=== PATIENT | male | born 1940 | race Caucasian/White ===

== ENCOUNTER 2016-08-14 06:31 | Day surgery (SDC) | payer OTHER ==
[2016-08-14] MEDS ORDERED: MIDAZOLAM 2 MG/2 ML VIAL IVP ONE (06:34)
[2016-08-14] MEDS ORDERED: fentaNYL 100 MCG/2 ML INJ IVP ONE (06:34)
[2016-08-14] MEDS ORDERED: NS 500 ML IV ONE (06:34)
[2016-08-14] MEDS ORDERED: BENZOCAINE UNIT DOSE SPRAY HURRICAINE MM ONE (06:34)
[2016-08-14] MEDS ORDERED: PROPOFOL 200 MG/20 ML VIAL IVP ONE (06:34)
--- NOTE | 2016-08-14 06:53 | CPEKG ---
Heart Rate: 132 RR Interval: 455 P-R Interval: 139 QRSD Interval: 84 QT Interval: 336 QTC Interval: 498 P [place]: 0 QRS [place]: 41 T Wave [place]: -1 EKG Severity - ABNORMAL ECG - EKG Impression: SUPRAVENTRICULAR TACHYCARDIA EKG Impression: BORDERLINE PROLONGED QT INTERVAL Electronically Signed By: Ruddy Ordoñez 14-Aug-2016 07:55:20
[2016-08-14] MEDS ORDERED: ATROPINE SULFATE 1 MG/10 ML SYR ONE (07:11)
[2016-08-14 07:18] LABS: INR 1.75 (0.83-1.16); PROTIME(PATIENT) 20.5 SEC (12.0-15.0)
[2016-08-14 07:19] LABS: APTT 56.5 SEC (23.0-38.0)
[2016-08-14 07:44] LABS: ANION GAP 10 mEq/L (8-16); CALCIUM 8.7 mg/dL (8.5-10.4); CARBON DIOXIDE 25 mEq/l (22-31); CHLORIDE 108 mEq/L (97-110); CREATININE 1.2 mg/dL (0.7-1.3); GLOMERULAR FILTRATION RATE 59; GLUCOSE 93 mg/dL (70-100); MAGNESIUM 1.9 mg/dL (1.6-2.3); POTASSIUM 4.1 mEq/L (3.5-5.2); SODIUM 143 mEq/L (134-144)
[2016-08-14] MEDS ORDERED: PROPOFOL 200 MG/20 ML VIAL ONE (07:59)
--- NOTE | 2016-08-14 11:34 | ECHO ---
[id number] + + [address] : : [facility] [address] : : [phone] + + Transesophageal Echocardiographic Report + ------+ :Name: IZABEL BROWN TStudy Date: 08/14/2016 07:43 AM : : Hospital Admission Number: [id number] Locatio n: CVC: :: 1940 Gender: Male : :Age: 76 yrs Race: WH : :Reason For Study: Atrial Fibrillation : + ------+ Doppler Measurements \T\ Calculations Ao V2 max: 179.7 cm/sec Ao max P.9 mmHg Left Ventricle Left ventricular systolic function is low normal. Ejection Fraction = 50%%. Right Ventricle The right ventricular systolic function is normal. Atria The interatrial septum is intact with no evidence for an atrial septal defect. Spontaneous contrast in left atrial appendage. A mass is seen in the left atrial appendage that is suggestive of a left atrial thrombus. Mitral Valve The mitral valve is normal in structure and function. There is no evidence of mitral valve prolapse. There is trace to mild mitral regurgitation. Tricuspid Valve The tricuspid valve is normal in structure and function. There is trace tricuspid regurgitation. Aortic Valve The aortic valve is trileaflet. There is mild aortic valve calcification. There is no aortic stenosis. There is no aortic insufficiency. Pulmonic Valve The pulmonic valve is normal in structure and function. Vessels Severe atherosclerotic plaque(s) in the descending aorta. Conclusion A 2D transesophageal echocardiogram with color flow Doppler was performed. Cardioversion canceled. Spontaneous contrast in left atrial appendage. A mass is seen in the left atrial appendage that is suggestive of a left atrial thrombus. There is trace to mild mitral regurgitation. Severe atherosclerotic plaque(s) in the descending aorta. Left ventricular systolic function is low normal. Ejection Fraction = 50%%. There is trace tricuspid regurgitation. Final Reading Physician: Fortino Artis electronically signed on 08/14/2016 11:34 AM Ordering Physician: Fortino Artis Performed By: Fortino Artis
== END 2016-08-14 09:40 | disposition home or self-care (01) ==
LOC: FCATH 06:31
PROVIDERS: ATTEND Internal Medicine Cardiovascular Disease
PROC: 4A02XCZ Measurement of Cardiac Rate, External Approach (ICD-10-PCS; principal; 2016-08-14)
DX: I48.0 Paroxysmal atrial fibrillation (principal); I25.10 Atherosclerotic heart disease of native coronary artery without angina pectoris; I71.4 Abdominal aortic aneurysm, without rupture; I73.9 Peripheral vascular disease, unspecified; I10 Essential (primary) hypertension; E78.00 Pure hypercholesterolemia, unspecified; I35.0 Nonrheumatic aortic (valve) stenosis; R35.1 Nocturia
CPT/HCPCS: J0461; J2704

== ENCOUNTER 2017-01-14 10:55 | Observation (INO) | payer OTHER ==
[2017-01-14] MEDS ORDERED: BACITRACIN IRRIGATION/NS 50,000 UNITS/1,000 ML BTL IRR ONE (10:59)
[2017-01-14] MEDS ORDERED: diphenhydrAMINE 25 MG CAP PO ONE (10:59)
[2017-01-14] MEDS ORDERED: DIAZEPAM 5 MG TAB PO ONE (10:59)
[2017-01-14] MEDS ORDERED: NS 1,000 ML IV ONE (10:59)
[2017-01-14] MEDS ORDERED: ceFAZolin 2 GM/SWFI 2 GM/20 ML SYR IVP ONE (10:59)
--- NOTE | 2017-01-14 11:20 | CPEKG ---
Heart Rate: 60 RR Interval: 1000 P-R Interval: 180 QRSD Interval: 92 QT Interval: 416 QTC Interval: 416 P [place]: 50 QRS [place]: 23 T Wave [place]: 6 EKG Severity - NORMAL ECG - EKG Impression: SINUS RHYTHM Electronically Signed By: Marcus Hernandez 14-Jan-2017 12:29:45
--- NOTE | 2017-01-14 11:20 | CPEKG ---
Heart Rate: 60 RR Interval: 1000 P-R Interval: 180 QRSD Interval: 92 QT Interval: 416 QTC Interval: 416 P [place]: 50 QRS [place]: 23 T Wave [place]: 6 EKG Severity - NORMAL ECG - EKG Impression: SINUS RHYTHM Electronically Signed By: Marcus Hernandez 14-Jan-2017 12:29:45
[2017-01-14 11:31] LABS: PLATELET COUNT 140 10^3/uL (150-400)
--- NOTE | 2017-01-14 11:41 | PDHPUP ---
History & Physical Update H&P update statement: This history and physical update is based on an assessment of the patient which was completed after admission or registration (within 24 hours), but prior to the surgery/procedure. H&P update: H&P reviewed & patient examined, no change in patient's condition since H&P completed
--- NOTE | 2017-01-14 11:41 | PDPROPOC ---
Sedation Plan of Care Sedation Plan of Care: vital signs stable, mental status noted, patient educated of risks, benefits, alternatives, patient can tolerate sedation ASA Classification: ASA 2 Planned drugs: fentanyl, midazolam Mallampati Score: Class 1 Mallampati Reference Image: Patient passed 3-3-2 rule?: Yes
[2017-01-14 11:51] LABS: INR 1.08 (0.83-1.16); PROTIME(PATIENT) 13.9 SEC (12.0-15.0)
--- NOTE | 2017-01-14 12:11 | PDGENHP ---
History & Physical Chief Complaint: 4.7 s pause post AFIb conversion History of Present Illness: AFIb with RVR Relevant Physical Exam: S1S2 RRR. CTA. A/O x 3 Cardiorespiratory Assessment: Tachy-galilea syndrome, AF with RVR and pauses post AFIB conversion up to 4.7 s. For permanent pacemaker placement
[2017-01-14] MEDS ORDERED: LIDOCAINE 1% 300 MG/30 ML SDV ONE (12:16)
[2017-01-14] MEDS ORDERED: BUPIVACAINE 0.5% 30 ML SDV ONE (12:17)
[2017-01-14] MEDS ORDERED: fentaNYL 100 MCG/2 ML INJ ONE (12:17)
[2017-01-14] MEDS ORDERED: MIDAZOLAM 2 MG/2 ML VIAL ONE (12:17)
[2017-01-14] MEDS ORDERED: IOPAMIDOL (ISOVUE-300) 100 ML BTL ONE (12:17)
[2017-01-14] MEDS ORDERED: HYDROCODONE/APAP 5/325 TAB PO PRN (14:26)
--- NOTE | 2017-01-14 14:43 | EPPROC ---
Electrophysiology Procedure Note: PROCEDURE PERFORMED: 1. Implantation of an A/V Pacemaker 2. Subclavian vein angiography 3. Fluoroscopy INDICATION: Atrial fibrillation with rapid ventricular response and post conversion pause of up to 4.7 seconds (Tachy-Pierre syndrome) PROCEDURE NOTE: Patient presented to the cardiac catheterization laboratory in a fasting, post absorptive state . EP RN administered sedation. The left infraclavicular area was prepped and draped in the usual sterile fashion. Lidocaine plus bupivacaine was used for local anesthesia. Left subclavian venography was performed by injection of iodinated contrast into the left antecubital vein. This was done to assure patency of the vein and also to assess for any anatomical aberrations. Using a combination of blunt and sharp dissection and electrocautery, the dissection was carried down to the prepectoral fascia. A pocket was made in this anatomical plane. All bleeding was controlled with electrocautery. The pocket was packed with gauze soaked in antibiotic solution. Fluoroscopy was utilized during the entire procedure for venous access and placement of the leads. Using a direct stick technique the left extrathoracic axillary vein was accessed with 2 sticks using the modified Seldinger technique. Placement of the guidewires into the venous system was confirmed by low-pressure blood return and also by visualizing the guidewires advancing into the inferior vena cava. A purse string suture was applied around the guidewires. Two #7 Maltese sheaths were advanced under fluoroscopic guidance over the guidewire. An active fixation ventricular lead was advanced into the right ventricular apex and screwed in place. An active fixation atrial lead was advanced into the right atrial appendage and screwed in place. The peel away sheaths were removed. Pacing thresholds, sensing parameters and lead impedances were measured. There was no diaphragmatic stimulation at maximum output. The leads were sutured to the prepectoral fascia with 3 nonabsorbable sutures each. The pocket was again inspected for any bleeding. The leads were attached to the pacemaker securely. The pacemaker was inserted into the pocket and secured in place with a nonabsorbable suture. Fluoroscopy was performed in SANCHEZ and [place] planes to verify right-sided placement of the leads. Also fluoroscopy of the pacemaker pocket was performed. The pacemaker pocket was closed in 3 layers with absorbable monocryl sutures and shanna. Appropriate dressing was applied. The patient left the cardiac catheterization laboratory in stable condition. Serial Numbers: 1. [facility]: [facility]272 SN [id number] 2. Atrial Lead: SJM Tendril STS 2088TC 52 cm SN [id number] 3. Ventricular Lead: SJM Tendril STS 2088TC 58 cm SN [id number] Stimulation Thresholds & Impedance Measurements: 1. Atrial Lead P 4.8 mV 493 ohm 0.5 V 0.5 ms 2. Ventricular Lead R 6.2 mV855 ohm 0.3 V 0.5 ms Pierre Pacing Parameters 1. Pacing mode: DDDR 2. Lower rate: 60ppm 3. Upper tracking rate: 130 ppm 4. Upper sensor rate: 130 ppm Patient Problems: Problems Problem Status Onset Sick sinus syndrome Acute
--- NOTE | 2017-01-14 14:43 | EPPROC ---
Electrophysiology Procedure Note: PROCEDURE PERFORMED: 1. Implantation of an A/V Pacemaker 2. Subclavian vein angiography 3. Fluoroscopy INDICATION: Atrial fibrillation with rapid ventricular response and post conversion pause of up to 4.7 seconds (Tachy-Pierre syndrome) PROCEDURE NOTE: Patient presented to the cardiac catheterization laboratory in a fasting, post absorptive state . EP RN administered sedation. The left infraclavicular area was prepped and draped in the usual sterile fashion. Lidocaine plus bupivacaine was used for local anesthesia. Left subclavian venography was performed by injection of iodinated contrast into the left antecubital vein. This was done to assure patency of the vein and also to assess for any anatomical aberrations. Using a combination of blunt and sharp dissection and electrocautery, the dissection was carried down to the prepectoral fascia. A pocket was made in this anatomical plane. All bleeding was controlled with electrocautery. The pocket was packed with gauze soaked in antibiotic solution. Fluoroscopy was utilized during the entire procedure for venous access and placement of the leads. Using a direct stick technique the left extrathoracic axillary vein was accessed with 2 sticks using the modified Seldinger technique. Placement of the guidewires into the venous system was confirmed by low-pressure blood return and also by visualizing the guidewires advancing into the inferior vena cava. A purse string suture was applied around the guidewires. Two #7 [place] sheaths were advanced under fluoroscopic guidance over the guidewire. An active fixation ventricular lead was advanced into the right ventricular apex and screwed in place. An active fixation atrial lead was advanced into the right atrial appendage and screwed in place. The peel away sheaths were removed. Pacing thresholds, sensing parameters and lead impedances were measured. There was no diaphragmatic stimulation at maximum output. The leads were sutured to the prepectoral fascia with 3 nonabsorbable sutures each. The pocket was again inspected for any bleeding. The leads were attached to the pacemaker securely. The pacemaker was inserted into the pocket and secured in place with a nonabsorbable suture. Fluoroscopy was performed in SANCHEZ and [place] planes to verify right-sided placement of the leads. Also fluoroscopy of the pacemaker pocket was performed. The pacemaker pocket was closed in 3 layers with absorbable monocryl sutures and shanna. Appropriate dressing was applied. The patient left the cardiac catheterization laboratory in stable condition. Serial Numbers: 1. Device: [facility] 2272 SN [id number] 2. Atrial Lead: SJM Tendril STS 2088TC 52 cm SN [id number] 3. Ventricular Lead: SJM Tendril STS 2088TC 58 cm SN [id number] Stimulation Thresholds & Impedance Measurements: 1. Atrial Lead P 4.8 mV 493 ohm 0.5 V 0.5 ms 2. Ventricular Lead R 6.2 mV855 ohm 0.3 V 0.5 ms Pierre Pacing Parameters 1. Pacing mode: DDDR 2. Lower rate: 60ppm 3. Upper tracking rate: 130 ppm 4. Upper sensor rate: 130 ppm Patient Problems: Problems Problem Status Onset Sick sinus syndrome Acute
--- NOTE | 2017-01-14 14:43 | EPPROC ---
Electrophysiology Procedure Note: PROCEDURE PERFORMED: 1. Implantation of an A/V Pacemaker 2. Subclavian vein angiography 3. Fluoroscopy INDICATION: Atrial fibrillation with rapid ventricular response and post conversion pause of up to 4.7 seconds (Tachy-Pierre syndrome) PROCEDURE NOTE: Patient presented to the cardiac catheterization laboratory in a fasting, post absorptive state . EP RN administered sedation. The left infraclavicular area was prepped and draped in the usual sterile fashion. Lidocaine plus bupivacaine was used for local anesthesia. Left subclavian venography was performed by injection of iodinated contrast into the left antecubital vein. This was done to assure patency of the vein and also to assess for any anatomical aberrations. Using a combination of blunt and sharp dissection and electrocautery, the dissection was carried down to the prepectoral fascia. A pocket was made in this anatomical plane. All bleeding was controlled with electrocautery. The pocket was packed with gauze soaked in antibiotic solution. Fluoroscopy was utilized during the entire procedure for venous access and placement of the leads. Using a direct stick technique the left extrathoracic axillary vein was accessed with 2 sticks using the modified Seldinger technique. Placement of the guidewires into the venous system was confirmed by low-pressure blood return and also by visualizing the guidewires advancing into the inferior vena cava. A purse string suture was applied around the guidewires. Two #7 Maltese sheaths were advanced under fluoroscopic guidance over the guidewire. An active fixation ventricular lead was advanced into the right ventricular apex and screwed in place. An active fixation atrial lead was advanced into the right atrial appendage and screwed in place. The peel away sheaths were removed. Pacing thresholds, sensing parameters and lead impedances were measured. There was no diaphragmatic stimulation at maximum output. The leads were sutured to the prepectoral fascia with 3 nonabsorbable sutures each. The pocket was again inspected for any bleeding. The leads were attached to the pacemaker securely. The pacemaker was inserted into the pocket and secured in place with a nonabsorbable suture. Fluoroscopy was performed in [place] and [place] planes to verify right-sided placement of the leads. Also fluoroscopy of the pacemaker pocket was performed. The pacemaker pocket was closed in 3 layers with absorbable monocryl sutures and shanna. Appropriate dressing was applied. The patient left the cardiac catheterization laboratory in stable condition. Serial Numbers: 1. Device: [facility] 2272 SN [id number] 2. Atrial Lead: SJM Tendril STS 2088TC 52 cm SN [id number] 3. Ventricular Lead: SJM Tendril STS 2088TC 58 cm SN [id number] Stimulation Thresholds & Impedance Measurements: 1. Atrial Lead P 4.8 mV 493 ohm 0.5 V 0.5 ms 2. Ventricular Lead R 6.2 mV855 ohm 0.3 V 0.5 ms Pierre Pacing Parameters 1. Pacing mode: DDDR 2. Lower rate: 60ppm 3. Upper tracking rate: 130 ppm 4. Upper sensor rate: 130 ppm Patient Problems: Problems Problem Status Onset Sick sinus syndrome Acute
--- NOTE | 2017-01-14 14:45 | CPEKG ---
Heart Rate: 60 RR Interval: 1000 P-R Interval: 200 QRSD Interval: 88 QT Interval: 424 QTC Interval: 424 QRS [place]: 25 T Wave [place]: -41 EKG Severity - ABNORMAL ECG - EKG Impression: ATRIAL-PACED RHYTHM EKG Impression: BORDERLINE T ABNORMALITIES, INFERIOR LEADS Electronically Signed By: Félix Herrera 15-Jan-2017 10:43:52
--- NOTE | 2017-01-14 14:45 | CPEKG ---
Heart Rate: 60 RR Interval: 1000 P-R Interval: 200 QRSD Interval: 88 QT Interval: 424 QTC Interval: 424 QRS [place]: 25 T Wave [place]: -41 EKG Severity - ABNORMAL ECG - EKG Impression: ATRIAL-PACED RHYTHM EKG Impression: BORDERLINE T ABNORMALITIES, INFERIOR LEADS Electronically Signed By: Félix Herrera 15-Jan-2017 10:43:52
[2017-01-14] MEDS ORDERED: METOPROLOL TARTRATE 50 MG TAB PO SCH (21:00)
[2017-01-14] MEDS ORDERED: LISINOPRIL 5 MG TAB PO SCH (21:00)
[2017-01-14] MEDS ORDERED: PANTOPRAZOLE SODIUM 40 MG TAB PO SCH (21:00)
[2017-01-14] MEDS ORDERED: ATORVASTATIN CALCIUM 40 MG TAB PO SCH (21:00)
[2017-01-14] MEDS ORDERED: NON-FORMULARY NEW DRUG (Omeprazole [Prilosec 20 Mg] 20 MG) PO SCH (21:00)
[2017-01-15 04:49] LABS: PLATELET COUNT 127 10^3/uL (150-400)
[2017-01-15 08:31] VITALS: BP 143/82; PULSE 60; RESP 15; TEMP 97.8; O2SAT 93
[2017-01-15] MEDS ORDERED: METOPROLOL SUCCINATE XR 25 MG TAB PO SCH (09:00)
--- NOTE | 2017-01-15 09:12 | CPEKG ---
Heart Rate: 60 RR Interval: 1000 P-R Interval: 196 QRSD Interval: 90 QT Interval: 408 QTC Interval: 408 QRS [place]: 10 T Wave [place]: 6 EKG Severity - ABNORMAL ECG - EKG Impression: ATRIAL-PACED RHYTHM Electronically Signed By: Félix Herrera 15-Jan-2017 10:43:29
--- NOTE | 2017-01-15 09:12 | CPEKG ---
Heart Rate: 60 RR Interval: 1000 P-R Interval: 196 QRSD Interval: 90 QT Interval: 408 QTC Interval: 408 QRS [place]: 10 T Wave [place]: 6 EKG Severity - ABNORMAL ECG - EKG Impression: ATRIAL-PACED RHYTHM Electronically Signed By: Félix Herrera 15-Jan-2017 10:43:29
--- NOTE | 2017-01-15 15:30 | GDS ---
[f rep st] DISCHARGE SUMMARY DISCHARGE DIAGNOSIS: 1. Paroxysmal atrial fibrillation. 2. Tachy-galilea syndrome. 3. Post dual-chamber pacemaker implant. BRIEF HISTORY: This is a 76-year-old man who is a patient of Dr. Artis. He has paroxysmal atrial fib rillation with RVR and has had up to 4.7 second pause post conversion to sinus rhythm. HOSPITAL COURSE: Dr. Hernandez implanted a dual-chamber pacemaker. This is a [employer] [facility] MRI compatible system. Mode is DDDR, base rate of 60 beats per minute, max track rate is 130 beats p er minute. Device interrogation on the morning of discharge demonstrated normal function with P waves at greater than 5 mV, atrial capture threshold 0.5 V at 0.5 milliseconds. Lead impedance is 490 ohm s, R-waves are 11.7 mV. Right ventricular capture threshold is 0.3 V at 0.5 milliseconds. RV lead im pedance is 850 ohms. The patient has done well overnight without any bleeding or pain at the pacemak er site. IMAGING: Chest x-ray demonstrates no pneumothorax. A 12-lead EKG demonstrates atrial pacing and ed tricular sensing. LAB WORK: WBC is 4.37, hemoglobin 13.9, hematocrit 40.4, platelets 127. Sodium 139, potassium 4.0, chloride 106, bicarb 25, BUN 16, creatinine 1.1, glucose 88. INR is 1.08, PTT is 13.9. PHYSICAL EXAM: VITAL SIGNS: Blood pressure is 143/82, pulse is 60, respirations 15, temperature is 36.6. GENERAL: He is alert and oriented, sitting up in bed, in no acute distress. CARDIAC: Regula r rate and rhythm with a 2/6 harsh systolic ejection murmur loudest at the right sternal border. SHANE GS: Clear to auscultation. ABDOMEN: Soft, and nontender. Pacemaker site has dry gauze with clear Op-Site over with minimal swelling. EXTREMITIES: Warm. No lower extremity edema or discoloration. DISCHARGE MEDICATIONS: Patient will continue current home medications. He will take Eliquis when he gets home this morning, and continue usual dosing. DISCHARGE ACTIVITIES: Restrictions were reviewed with the patient and his including no lifting left arm above the shoulder height or pulling arm behind him. No lifting over 10 pounds for 4 weeks. He is not to get the dressing wet until wound check next week. FOLLOWUP: He has a pacemaker check and wound check scheduled at [facility] on 01/22 at 2:30. He will continue routine device followup at Dr. Artis's office. He has a followup with Dr. Hernandez on [facility] er 6th at 3:30. /[id number]/MODL
--- NOTE | 2017-01-15 15:30 | GDS ---
[f rep st] DISCHARGE SUMMARY DISCHARGE DIAGNOSIS: 1. Paroxysmal atrial fibrillation. 2. Tachy-galilea syndrome. 3. Post dual-chamber pacemaker implant. BRIEF HISTORY: This is a 76-year-old man who is a patient of Dr. Artis. He has paroxysmal atrial fib rillation with RVR and has had up to 4.7 second pause post conversion to sinus rhythm. HOSPITAL COURSE: Dr. Hernandez implanted a dual-chamber pacemaker. [facility] is a [employer] [facility] system. Mode is DDDR, base rate of 60 beats per minute, max track rate is 130 beats p er minute. Device interrogation on the morning of discharge demonstrated normal function with P waves at greater than 5 mV, atrial capture threshold 0.5 V at 0.5 milliseconds. Lead impedance is 490 ohm s, R-waves are 11.7 mV. Right ventricular capture threshold is 0.3 V at 0.5 milliseconds. RV lead im pedance is 850 ohms. The patient has done well overnight without any bleeding or pain at the pacemak er site. IMAGING: Chest x-ray demonstrates no pneumothorax. A 12-lead EKG demonstrates atrial pacing and ed tricular sensing. LAB WORK: WBC is 4.37, hemoglobin 13.9, hematocrit 40.4, platelets 127. Sodium 139, potassium 4.0, chloride 106, bicarb 25, BUN 16, creatinine 1.1, glucose 88. INR is 1.08, PTT is 13.9. PHYSICAL EXAM: VITAL SIGNS: Blood pressure is 143/82, pulse is 60, respirations 15, temperature is 36.6. GENERAL: He is alert and oriented, sitting up in bed, in no acute distress. CARDIAC: Regula r rate and rhythm with a 2/6 harsh systolic ejection murmur loudest at the right sternal border. SHANE GS: Clear to auscultation. ABDOMEN: Soft, and nontender. Pacemaker site has dry gauze with clear Op-Site over with minimal swelling. EXTREMITIES: Warm. No lower extremity edema or discoloration. DISCHARGE MEDICATIONS: Patient will continue current home medications. He will take Eliquis when he gets home this morning, and continue usual dosing. DISCHARGE ACTIVITIES: Restrictions were reviewed with the patient and his including no lifting left arm above the shoulder height or pulling arm behind him. No lifting over 10 pounds for 4 weeks. He is not to get the dressing wet until wound check next week. FOLLOWUP: He has a pacemaker check and wound check scheduled at [facility] on 01/22 at 2:30. He will continue routine device followup at Dr. Artis's office. He has a followup with Dr. Hernandez on [facility] er 6th at 3:30. /[id number]/MODL
--- NOTE | 2017-01-15 17:21 | ASDISCHSUM ---
Discharge Information Plan Status:Home with No Needs Medically Cleared to Leave:01/14/2017 Discharge Date:01/15/2017 10:29 AM CM D/C Disposition:Home, Routine, Self-Care ADT D/C Disposition:Home, Routine, Self-Care Projected Discharge Date:01/15/2017 10:29 AM Transportation at D/C:Friend Discharge Delay Reason: Follow-Up Date:01/15/2017 10:29 AM Discharge Slot: Final Diagnosis: Placement Information Patient Contact Information Contact Name:RAZ Relationship: Address:[address] City:[place] Alternate Phone: State/Zip Code:[place] [address] Email: Financial Information Financial Class: Primary Plan Desc:MEDICARE OUTPATIENT Primary Plan Number:[id number] Secondary Plan Desc:[facility] Secondary Plan Number:[id number] Assessment Information Intervention Information
--- NOTE | 2017-01-15 17:21 | ASDISCHSUM ---
Discharge Information Plan Status:Home with No Needs Medically Cleared to Leave:01/14/2017 Discharge Date:01/15/2017 10:29 AM CM D/C Disposition:Home, Routine, Self-Care ADT D/C Disposition:Home, Routine, Self-Care Projected Discharge Date:01/15/2017 10:29 AM Transportation at D/C:Friend Discharge Delay Reason: Follow-Up Date:01/15/2017 10:29 AM Discharge Slot: Final Diagnosis: Placement Information Patient Contact Information Contact Name:RAZ Relationship: Address:[address] City:[place] Alternate Phone: State/Zip Code:[place] [address] Email: Financial Information Financial Class: Primary Plan Desc:MEDICARE OUTPATIENT Primary Plan Number:[id number] Secondary Plan Desc:[facility] Secondary Plan Number:[id number] Assessment Information Intervention Information
--- NOTE | 2017-01-15 17:21 | ASDISCHSUM ---
Discharge Information Plan Status:Home with No Needs Medically Cleared to Leave:01/14/2017 Discharge Date:01/15/2017 10:29 AM CM D/C Disposition:Home, Routine, Self-Care ADT D/C Disposition:Home, Routine, Self-Care Projected Discharge Date:01/15/2017 10:29 AM Transportation at D/C:Friend Discharge Delay Reason: Follow-Up Date:01/15/2017 10:29 AM Discharge Slot: Final Diagnosis: Placement Information Patient Contact Information Contact Name:RAZ Relationship: Address:[address] City:[place] Alternate Phone: State/Zip Code:[place] [address] Email: Financial Information Financial Class: Primary Plan Desc:MEDICARE OUTPATIENT Primary Plan Number:[id number] Secondary Plan Desc:[facility] Secondary Plan Number:[id number] Assessment Information Intervention Information
== END 2017-01-15 10:29 | disposition home or self-care (01) ==
LOC: FCATH 10:55 → F2W 14:26
PROVIDERS: ADMIT Internal Medicine Cardiovascular Disease; ATTEND Internal Medicine Cardiovascular Disease
PROC: 02H63JZ Insertion of Pacemaker Lead into Right Atrium, Percutaneous Approach (ICD-10-PCS; principal; 2017-01-14)
PROC: 0JH606Z Insertion of Pacemaker, Dual Chamber into Chest Subcutaneous Tissue and Fascia, Open Approach (ICD-10-PCS; principal; 2017-01-14)
PROC: 02HK3JZ Insertion of Pacemaker Lead into Right Ventricle, Percutaneous Approach (ICD-10-PCS; principal; 2017-01-14)
DX: I49.5 Sick sinus syndrome (principal); I48.0 Paroxysmal atrial fibrillation; I10 Essential (primary) hypertension; I73.9 Peripheral vascular disease, unspecified; I35.0 Nonrheumatic aortic (valve) stenosis; I71.4 Abdominal aortic aneurysm, without rupture; I25.10 Atherosclerotic heart disease of native coronary artery without angina pectoris; K21.9 Gastro-esophageal reflux disease without esophagitis; Z79.01 Long term (current) use of anticoagulants; Z87.891 Personal history of nicotine dependence
CPT/HCPCS: 33208; 71010; 71020; 93005; C1785; C1898; J0690; J2250; J3010; Q9967

== ENCOUNTER 2017-02-18 00:35 | Inpatient (IN) | payer OTHER ==
[2017-02-18] MEDS ORDERED: ONDANSETRON DISINTEGRATING 4 MG TAB PO PRN (10:57)
[2017-02-18] MEDS ORDERED: ONDANSETRON 4 MG/2 ML VIAL IVP PRN (10:57)
[2017-02-18] MEDS ORDERED: ACETAMINOPHEN 325 MG TAB PO PRN (10:57)
--- NOTE | 2017-02-18 11:42 | CPEKG ---
Heart Rate: 70 RR Interval: 857 P-R Interval: 180 QRSD Interval: 88 QT Interval: 404 QTC Interval: 436 QRS [place]: 29 T Wave [place]: 39 EKG Severity - ABNORMAL ECG - EKG Impression: ATRIAL-PACED RHYTHM Electronically Signed By: Yesenia Gann 18-Feb-2017 12:18:06
[2017-02-18 12:11] LABS: % IMMATURE GRANULYOCYTES 0.2 % (0.0-1.1); ABSOLUTE IMMATURE GRANULOCYTES 0.01 10^3/uL (0.00-0.10); ADD DIFF? NO; ADD MORPH? NO; ADD SCAN? NO; ATYPICAL LYMPHOCYTE FLAG 0 (0-99); FRAGMENT RBC FLAG 0 (0-99); HEMATOCRIT 45.6 % (40.0-51.0); HEMOGLOBIN 15.3 g/dL (13.7-17.5); LEFT SHIFT FLG 0 (0-99); LIPEMIA HEMOLYSIS FLAG 80 (0-99); MEAN CELL HEMOGLOBIN 31.4 pg (27.9-34.1); MEAN CELL HEMOGLOBIN CONCENTR. 33.6 g/dL (32.4-36.7); MEAN CELL VOLUME 93.4 fL (81.5-99.8); MEAN PLATELET VOLUME 10.2 fL (8.7-11.7); PLATELET CLUMPS FLAG 10 (0-99); PLATELET COUNT 127 10^3/uL (150-400); RED BLOOD CELL COUNT 4.88 10^6/uL (4.40-6.38); RED CELL DISTRIBUTION WIDTH 13.9 % (11.5-15.2)
[2017-02-18 12:22] LABS: INR 1.19 (0.83-1.16); PROTIME(PATIENT) 15.3 SEC (12.0-15.0)
[2017-02-18 12:23] LABS: ANION GAP 12 mEq/L (8-16); APTT 31.3 SEC (23.0-38.0); CALCIUM 9.2 mg/dL (8.5-10.4); CARBON DIOXIDE 29 mEq/l (22-31); CHLORIDE 105 mEq/L (97-110); CREATININE 1.1 mg/dL (0.7-1.3); GLOMERULAR FILTRATION RATE > 60; GLUCOSE 93 mg/dL (70-100); POTASSIUM 4.4 mEq/L (3.5-5.2); SODIUM 146 mEq/L (134-144)
[2017-02-18] MEDS ORDERED: NAPROXEN SODIUM 220 MG TAB PO PRN (12:28)
--- NOTE | 2017-02-18 13:00 | PDCARPN ---
Cardiology Progress Note Chief Complaint: Patient reports no complaints Assessment/Plan: Assessment: Please see Dr. Hernandez is office note dated 01/10/2017 to be used as official history and physical. Mr. Darling is a 76-year-old male with known history of paroxysmal atrial fibrillation, sinus pauses up to 4.2 sec, hypertension, status post ppm implantation. He has been noted in the past after cardioversion of having 4.2 sec pauses, and bradycardia post ablation. He was evaluated by Dr. Hernandez on January 10, per request of his primary medical imaging director, Dr. Artis, which he was felt for best controlling his atrial fibrillation, would be antiarrhythmic therapy after pacemaker implantation. He is status post ppm dual chamber placed by Dr. Hernandez on 01/14/2017. He has been admitted today to be monitored by initial loading doses of sotalol. His electrocardiogram done today shows a pace with intrinsic ventricular response, normal axis, no significant ST or T-wave abnormalities suggesting of ischemia. QTC was measured at 436 milliseconds. Initial laboratory studies showing no anemia, mildly elevated sodium at 146, potassium 4.4, magnesium 2.0, rest of electrolyte and renal function WNL. Plan: 1. Paroxysmal atrial fibrillation: Patient currently a paced with intrinsic ventricular response. Will discontinue his metoprolol, and start him on sotalol at 120 mg p. o. twice daily D. We will plan for his 1st 4 doses to get a 2 hr post dosing 12 lead electrocardiogram. We will continue on current anticoagulation therapy of Eliquis. 2. Sinus pauses: Patient has been noted to have pauses up to 4.2 sec on Zoll monitor, has recently underwent ppm implantation. No noted on electrocardiogram , continue monitor. 3. Hypertension: Will resume patient's home lisinopril, with the discontinuation of metoprolol and placed him on sotalol, will monitor his blood pressure closely, and adjust medication therapy as needed. 4. DVT prophylaxis: Patient is ambulatory , have ordered him to have knee- high Mannie hose. He is also on full anticoagulation with Eliquis. 5. Code status: Patient is a full code. Due to potential arrhythmias with sotalol loading, patient will be monitored for 1st 4 doses, which will require to be in hospital for greater than 2 midnights. 02/18/17 12:59 Subjective: patient denies of any chest pressure, pain, breath, orthopnea, PND, edema, lightheadedness, near-syncope, or syncopal events. Denies of any symptoms suggestive of TIA or CVA. Denies of any bleeding issues, currently on Eliquis. Reviewed/Discussed With: other (Dr Hernandez) Objective: Vital Signs (8 Hrs) Temp Pulse Resp BP Pulse Ox 02/18/17 10:00 36.5 C 67 16 138/78 H 94 Intake/Output (24 Hrs) 02/17/17 02/18/17 02/19/17 05:59 05:59 05:59 Other: Weight 94.4 kg Result Diagrams: 02/18/17 11:55 02/18/17 11:55 - Physical Exam Constitutional: WDWN, healthy appearing, no apparent distress Ears, Nose, Mouth, Throat: moist mucous membranes Cardiovascular: regular rate and rhythm, systolic murmur ( 1-2/6 systolic murmur noted along left sternal master), pulses symmetric bilat, No jugular vein distention (rder.), No carotid bruit Peripheral Pulses: 1+: dorsalis-pedis (R), dorsalis-pedis (L), 2+: carotid (R), carotid (L) Respiratory: other ( Lungs are clear to auscultation, no rhonchi, rales, or wheezing noted.) Gastrointestinal: normoactive bowel sounds Skin: warm, no edema Neurologic: AAOx3 Psychiatric: cooperative, interactive, following commands ICD10 Worksheet Patient Problems: Problems Problem Status Onset Sick sinus syndrome Acute
[2017-02-18] MEDS: ATORVASTATIN CALCIUM 40 MG TAB PO SCH (20:15)
[2017-02-18] MEDS: LISINOPRIL 5 MG TAB PO SCH (20:16)
[2017-02-18] MEDS: ASPIRIN EC 81 MG TAB PO SCH (20:16)
[2017-02-18] MEDS: SOTALOL HCL 80 MG TAB PO SCH (20:17)
[2017-02-18] MEDS: APIXABAN 5 MG TAB PO SCH (20:17)
[2017-02-18] MEDS: PANTOPRAZOLE SODIUM 40 MG TAB PO SCH (20:17)
[2017-02-18] MEDS ORDERED: NON-FORMULARY NEW DRUG (Omeprazole [Prilosec 20 Mg] 20 MG) PO SCH (21:00)
--- NOTE | 2017-02-18 22:43 | CPEKG ---
Heart Rate: 60 RR Interval: 1000 P-R Interval: 196 QRSD Interval: 90 QT Interval: 428 QTC Interval: 428 QRS [place]: 18 T Wave [place]: 34 EKG Severity - ABNORMAL ECG - EKG Impression: ATRIAL-PACED RHYTHM Electronically Signed By: Yesenia Gann 19-Feb-2017 06:58:37
[2017-02-19 06:03] LABS: INR 1.11 (0.83-1.16); PROTIME(PATIENT) 14.5 SEC (12.0-15.0)
[2017-02-19 06:10] LABS: ANION GAP 11 mEq/L (8-16); CALCIUM 8.9 mg/dL (8.5-10.4); CARBON DIOXIDE 23 mEq/l (22-31); CHLORIDE 109 mEq/L (97-110); CREATININE 1.1 mg/dL (0.7-1.3); GLOMERULAR FILTRATION RATE > 60; GLUCOSE 90 mg/dL (70-100); MAGNESIUM 1.9 mg/dL (1.6-2.3); POTASSIUM 4.2 mEq/L (3.5-5.2); SODIUM 143 mEq/L (134-144)
[2017-02-19] MEDS: SOTALOL HCL 80 MG TAB PO SCH ×2 (09:04→21:09)
[2017-02-19] MEDS: APIXABAN 5 MG TAB PO SCH ×2 (09:04→21:09)
--- NOTE | 2017-02-19 09:47 | PDCARPN ---
Cardiology Progress Note Chief Complaint: Patient voices no complaints today. States he is feeling well. Assessment/Plan: Assessment: Mr. Darling is a 76-year-old male with known history of paroxysmal atrial fibrillation, sinus pauses up to 4.2 sec, hypertension, status post ppm implantation. He has been noted in the past after cardioversion of having 4.2 sec pauses, and bradycardia post ablation. He was evaluated by Dr. 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 Artis, which he was felt for best controlling his atrial fibrillation, would be antiarrhythmic therapy after pacemaker implantation. He is status post ppm dual chamber placed by Dr. Hernandez on 01/14/2017. Today, patient states that he feels well. Denies any chest pain, chest pressure , palpitations, shortness of breath, lightheadedness, or dizziness. Reviewed telemetry this morning, and patient is A paced with V intrinsic beat. No runs of arrhythmia noted. Post dose EKG showed QTc of 428 last night (pre- dose QTc was 436). Today labs revealed potassium 4.2 and magnesium was 1.9. Plan: 1. Paroxysmal atrial fibrillation: Patient currently a paced with intrinsic ventricular response. Continue current dose sotalol at 120 mg p. o. twice daily. Continue next 3 doses during this admission to get a 2 hr post dosing 12 lead electrocardiogram. We will continue on current anticoagulation therapy of Eliquis. 2. Sinus pauses: Patient has been noted to have pauses up to 4.2 sec on Zoll monitor, has recently underwent ppm implantation. No noted on electrocardiogram , continue monitor. 3. Hypertension: Blood pressure this morning 124/61. Continue current doses of lisinopril and sotalol, will monitor his blood pressure closely, and adjust medication therapy as needed. 4. DVT prophylaxis: Patient is ambulatory , have ordered him to have knee- high Mannie hose. He is also on full anticoagulation with Eliquis. 5. Code status: Patient is a full code. Due to potential arrhythmias with sotalol loading, patient will be monitored for 1st 4 doses, which will require to be in hospital for greater than 2 midnights. 02/19/17 09:41 Subjective: Patient denies any chest pain, pressure, palpitations, or lightheadedness. Reviewed/Discussed With: other (Dr Hernandez) Objective: Vital Signs (8 Hrs) Temp Pulse Resp BP Pulse Ox 02/19/17 08:00 36.6 C 60 19 124/61 H 92 02/19/17 04:25 36.6 C 68 16 138/84 H 92 Intake/Output (24 Hrs) 02/18/17 02/19/17 02/20/17 05:59 05:59 05:59 Intake Total 1500 Output Total 900 Balance 600 Intake: Oral (ml) 1500 Output: Urine (ml) 900 Toilet 900 Other: Weight 94.4 kg Intake Quantity Yes Sufficient Number of Stools Toilet 1 Result Diagrams: 02/18/17 11:55 02/19/17 04:34 - Physical Exam Constitutional: WDWN, healthy appearing, no apparent distress Ears, Nose, Mouth, Throat: moist mucous membranes Cardiovascular: regular rate and rhythm, systolic murmur, pulses symmetric bilat , No no rubs, No no gallops (3/6 r upper border), No jugular vein distention Peripheral Pulses: 1+: dorsalis-pedis (R), dorsalis-pedis (L) Respiratory: clear to auscultate bilat, no crackles, no wheezes, No reduced air movement Skin: warm, no edema Neurologic: AAOx3 Psychiatric: cooperative, interactive, following commands ICD10 Worksheet Patient Problems: Problems Problem Status Onset Sick sinus syndrome Acute
--- NOTE | 2017-02-19 10:01 | ASMTCMCOM ---
CM Note CM Note Notes: 02/19/2017 Case Management Note Reviewed chart. Pt admitted for Sotolol loading. Recent d/c from [facility] was independent. There are no new case management d/c needs identified d/t family support and activity levels prior to admission. There are no PT or OT evals ordered at this time. Case Management d/c poc: Home independent with family support and follow up as directed. Case Management available if needs change. Date Signed: 02/19/2017 10:01 AM Electronically Signed By:Sangeetha Bartholomew RN
[2017-02-19] MEDS ORDERED: FLU VACC QS 2017-18 (3YR+)/PF 0.5 ML SYR (FLUARIX QUAD) IM ONE (10:02)
[2017-02-19] MEDS ORDERED: PNEUMOC 13-VAL CONJ-DIP CRM/PF 0.5 ML SYR IM ONE (10:02)
--- NOTE | 2017-02-19 11:07 | CPEKG ---
Heart Rate: 60 RR Interval: 1000 P-R Interval: 192 QRSD Interval: 86 QT Interval: 444 QTC Interval: 444 QRS [place]: 22 T Wave [place]: 21 EKG Severity - ABNORMAL ECG - EKG Impression: ATRIAL-PACED RHYTHM Electronically Signed By: Marcus Hernandez 19-Feb-2017 11:30:17
[2017-02-19 16:32] VITALS: PULSE 60
[2017-02-19] MEDS: PANTOPRAZOLE SODIUM 40 MG TAB PO SCH (21:09)
[2017-02-19] MEDS: ATORVASTATIN CALCIUM 40 MG TAB PO SCH (21:09)
[2017-02-19] MEDS: LISINOPRIL 5 MG TAB PO SCH (21:09)
[2017-02-19] MEDS: ASPIRIN EC 81 MG TAB PO SCH (21:09)
--- NOTE | 2017-02-19 23:11 | CPEKG ---
Heart Rate: 60 RR Interval: 1000 P-R Interval: 192 QRSD Interval: 90 QT Interval: 452 QTC Interval: 452 QRS [place]: 5 T Wave [place]: 11 EKG Severity - ABNORMAL ECG - EKG Impression: ATRIAL-PACED RHYTHM Electronically Signed By: Yesenia Gann 20-Feb-2017 08:28:05
[2017-02-20 05:45] LABS: ANION GAP 9 mEq/L (8-16); CARBON DIOXIDE 28 mEq/l (22-31); CHLORIDE 105 mEq/L (97-110); CREATININE 1.1 mg/dL (0.7-1.3); GLOMERULAR FILTRATION RATE > 60; GLUCOSE 85 mg/dL (70-100); MAGNESIUM 1.8 mg/dL (1.6-2.3); SODIUM 142 mEq/L (134-144)
[2017-02-20 06:00] LABS: CALCIUM 8.5 mg/dL (8.5-10.4)
[2017-02-20] MEDS ORDERED: MAGNESIUM SULF 1 GM/DEXTROSE 100 ML IV ONE (08:05)
[2017-02-20] MEDS: APIXABAN 5 MG TAB PO SCH (08:42)
[2017-02-20] MEDS: SOTALOL HCL 80 MG TAB PO SCH (08:43)
--- NOTE | 2017-02-20 11:07 | CPEKG ---
Heart Rate: 60 RR Interval: 1000 P-R Interval: 188 QRSD Interval: 90 QT Interval: 432 QTC Interval: 432 QRS [place]: 28 T Wave [place]: 37 EKG Severity - ABNORMAL ECG - EKG Impression: ATRIAL-PACED RHYTHM Electronically Signed By: Marcus Hernandez 20-Feb-2017 11:14:23
[2017-02-20 12:31] VITALS: BP 135/72; RESP 14; TEMP 97.5; O2SAT 93
--- NOTE | 2017-02-20 13:41 | GDS ---
[f rep st] DISCHARGE SUMMARY ADMISSION DIAGNOSES: 1. Paroxysmal atrial fibrillation. 2. Tachybrady syndrome. 3. Remote permanent pacemaker implantation. 4. Hypertension. DISCHARGE DIAGNOSES: 1. Paroxysmal atrial fibrillation. 2. Tachybrady syndrome. 3. Remote permanent pacemaker implantation. 4. Hypertension. 5. Status post antiarrhythmic of sotalol loading. PROCEDURES PERFORMED DURING HOSPITALIZATION: 1. Electrocardiogram. 2. Laboratory studies. BRIEF HISTORY: Please see history and physical, briefly the patient is a 76-year-old male with known history of paroxysmal atrial fibrillation. Unfortunately he has been noted to have tachybrady syndro me. He has recently underwent PPM implantation on January 14. He has been on metoprolol, but demarcus nues to have episodes of atrial fibrillation and was electively admitted to [facility] for sotalol loading. HOSPITAL COURSE: The patient was admitted to the PCU. There he has been on continuous cardiac monit oring. His metoprolol tartrate has been discontinued and he has been started on sotalol. He has been getting 2-hour post dosing electrocardiograms. He has maintained a paced intrinsic ventricular rhyth m. He has had no atrial fibrillation, A flutter or pauses or malignant arrhythmias throughout hospita lization. Denies any adverse reactions since starting sotalol. He has been up and walking the unit without any difficulties. His QTc post sotalol dosing 2 hours has been remaining within normal limit s. PHYSICAL EXAMINATION: GENERAL APPEARANCE: Medium built, well-groomed male. He is alert a nd oriented to person, place, time, and situation. Appears to be under no acute distress. CURRENT V ITAL SIGNS: Blood pressure of 130/67, heart rate of 60, respirations are 92% on room air. Temperatu re 36.4 degrees Celsius. HEENT: Head is normocephalic. Lips and tongue are pink and moist with no signs of cyanosis. Conjunctivae pink. NECK: Trachea is midline, +2 carotids bilateral. No ausculta carrol bruits. No jugular vein distention. RESPIRATORY: Lungs clear to auscultation, no rhonchi, rales or wheezes. No accessory muscle use. No intercostal muscle retraction noted. CARDIAC: Regular ra te, regular rhythm, S1, S2. A 2-3/6 systolic murmur noted loudest in the left upper chest. ABDOMEN: Soft, nontender, bowel sounds x4 quadrants. No organomegaly. No palpable masses. SKIN: [place], warm, dry, trace peripheral edema to ankles. VASCULAR: Carotids +2, radials +2, +1 posterior tibial pulses bilateral. LABORATORY STUDIES: Laboratory studies done today show sodium of 142, potassium 4.0, chloride 105, C O2 28, BUN 17, creatinine 1.1, glucose 85, calcium 8.5, magnesium 1.8. STUDIES: The patient's most recent electrocardiogram done today showing atrial paced with intrinsic ventricular response, no ST or T-wave abnormalities. DISCHARGE DISPOSITION: Patient will be discharged home in stable condition. There are no activity re strictions and he is to resume a normal diet. DISCHARGE MEDICATIONS: Please see discharge medication reconciliation sheet. Note patient's metoprol ol has been discontinued, he has been started on sotalol at 120 mg p.o. b.i.d. The patient was also noted to have mildly low magnesium at 1.8. Per Dr. Hernandez's recommendation he will be started on 1 tablet of Slow-Mag daily. DISCHARGE INSTRUCTIONS: Antiarrhythmic discharge instructions went over with the patient including p otential side effects of medications. He has a set followup appointment with Dr. Hernandez in 1 month's ti ks. He will also follow up with Dr. Artis, his primary forge press operator. TOTAL TIME SPENT ON DISCHARGE: Greater than 30 minutes in. /[id number]/MODL
--- NOTE | 2017-02-20 14:40 | ASDISCHSUM ---
Discharge Information Plan Status:Home with No Needs Medically Cleared to Leave:02/19/2017 Discharge Date:02/20/2017 02:22 PM CM D/C Disposition:Home, Routine, Self-Care ADT D/C Disposition:Home, Routine, Self-Care Projected Discharge Date:02/20/2017 02:22 PM Transportation at D/C:Family Discharge Delay Reason: Follow-Up Date:02/20/2017 02:22 PM Discharge Slot: Final Diagnosis: Placement Information Patient Contact Information Contact Name:RAZ Relationship: Address:[address] City:[place] Alternate Phone: State/Zip Code:[place] [address] Email: Financial Information Financial Class: Primary Plan Desc:MEDICARE INPATIENT Primary Plan Number:[id number] Secondary Plan Desc:[facility] Secondary Plan Number:[id number] Assessment Information [facility] CM Progress Note CM Note CM Note Notes: 02/19/2017 Case Management Note Reviewed chart. Pt admitted for Sotolol loading. Recent d/c from [facility] was independent. There are no new case management d/c needs identified d/t family support and activity levels prior to admission. There are no PT or OT evals ordered at this time. Case Management d/c poc: Home independent with family support and follow up as directed. Case Management available if needs change. Date Signed: 02/19/2017 10:01 AM Electronically Signed By:Sangeetha Bartholomew RN LACE LACE Length of stay for Answers: 2 days current admission Acuity / Level of Care Answers: No. Emergency dept visits in Answers: 0 last 6 months Score: 2 Date Signed: 02/20/2017 11:46 AM Electronically Signed By:Sangeetha Bartholomew RN [facility] CM Progress Note CM Note CM Note Notes: 02/20/2017 Case Management Note Pt d/c independent. Date Signed: 02/20/2017 02:40 PM Electronically Signed By:Sangeetha Bartholomew RN Intervention Information Intervention Type:*Incorrect Registration Date of Service:02/18/2017 03:20 PM Patient Type:Observation Staff Member:ABRAN Tilley Courtney Hours: Discipline: Severity: Comment:
== END 2017-02-20 14:22 | disposition home or self-care (01) | DRG 310 ==
LOC: F2W 00:36 → UNDOADMOB 00:36 → F2W 09:44 → OBSVTOIN 10:57
PROVIDERS: ADMIT Internal Medicine Cardiovascular Disease; ATTEND Internal Medicine Cardiovascular Disease
DX: I48.0 Paroxysmal atrial fibrillation (principal); I10 Essential (primary) hypertension; Z95.0 Presence of cardiac pacemaker; Z23 Encounter for immunization
CPT/HCPCS: G0008; G0009; J3475

== ENCOUNTER → 2017-05-15 | Outpatient (CLI) | payer OTHER ==
[~2017-05-15] MED LIST: IOPAMIDOL (ISOVUE 370) 100 ML BTL IV ONE
== END ==
LOC: FIMAGING 15:52
PROVIDERS: ATTEND Internal Medicine Cardiovascular Disease
DX: I71.4 Abdominal aortic aneurysm, without rupture (principal); I72.3 Aneurysm of iliac artery; I74.3 Embolism and thrombosis of arteries of the lower extremities
CPT/HCPCS: 74174; Q9967

== ENCOUNTER 2017-07-15 06:16 | Inpatient (IN) | payer OTHER ==
[2017-07-15] MEDS ORDERED: ALTEPLASE 2 MG VIAL IVP PRN (07:02)
[2017-07-15] MEDS ORDERED: NALOXONE HCL 0.4 MG/ML INJ IVP PRN ×2 (07:02→13:35)
[2017-07-15] MEDS ORDERED: FLUMAZENIL 0.5 MG/5 ML MDV IVP PRN (07:02)
[2017-07-15] MEDS ORDERED: ceFAZolin 2 GM/SWFI 2 GM/20 ML SYR IVP ONE (07:02)
[2017-07-15] MEDS ORDERED: MIDAZOLAM 2 MG/2 ML VIAL IVP PRN (07:02)
[2017-07-15] MEDS ORDERED: LR 1,000 ML IV ONE (07:02)
[2017-07-15] MEDS ORDERED: IOPAMIDOL (ISOVUE-300) 100 ML BTL ONE ×2 (07:46→10:36)
[2017-07-15 07:52] LABS: INR 1.02 (0.83-1.16); PROTIME(PATIENT) 13.6 SEC (12.0-15.0)
[2017-07-15] MEDS ORDERED: fentaNYL 100 MCG/2 ML INJ ONE ×2 (08:24→12:34)
[2017-07-15 08:26] LABS: PLATELET COUNT 129 10^3/uL (150-400)
[2017-07-15] MEDS ORDERED: PROPOFOL/EMULSION 500 MG/50 ML BOTTLE IV ONE ×2 (08:33→10:07)
--- NOTE | 2017-07-15 08:35 | PDGENHP ---
History & Physical Chief Complaint: AAA. History of Present Illness: Know AAA, been followed by CT. Recently enlarging. Now at 5.3x5cm. Patient has seen Dr. Melendez. Endograft repair today. Pertinent Past, Social, Family History: PVD, pace maker 2months ago. On Eliquis , off x 2 days. Relevant Physical Exam: In no distress. Pedal pulses dopplerable. Cardiorespiratory Assessment: RRR. CTA.
[2017-07-15] MEDS ORDERED: LIDOCAINE 2% 100 MG/5 ML SYR ONE (08:41)
[2017-07-15] MEDS ORDERED: PHENYLEPHRINE HCL 100 MCG/ML SYR ONE (09:13)
[2017-07-15] MEDS ORDERED: DEXAMETHASONE 4 MG/ML VIAL ONE ×2 (09:30)
[2017-07-15] MEDS ORDERED: PHENYLEPHRINE 10 MG/ML SDV ONE (09:36)
[2017-07-15] MEDS ORDERED: HEPARIN 10,000 UNIT/10 ML MDV (1,000 UNIT/ML) ONE (09:40)
--- NOTE | 2017-07-15 09:49 | PDANEPAE ---
ANE History of Present Illness AAA s/f endovascular repair ANE Past Medical History - Cardiovascular History Hx Hypertension: Yes Hx Arrhythmias: Yes Hx Chest Pain: No Hx Coronary Artery / Peripheral Vascular Disease: Yes Hx CHF / Valvular Disease: No Hx Palpitations: No Cardiovascular History Comment: Bradycardia; A-fib; heart murmor; pacemaker - Pulmonary History Hx COPD: No Hx Asthma/Reactive Airway Disease: No Hx Recent Upper Respiratory Infection: No Hx Oxygen in Use at Home: No Hx Sleep Apnea: No Sleep Apnea Screening Result - Last Documented: Positive - Neurologic History Hx Cerebrovascular Accident: No Hx Seizures: No Hx Dementia: No - Endocrine History Hx Diabetes: No - Renal History Hx Renal Disorders: No - Liver History Hx Hepatic Disorders: No - Neurological & Psychiatric Hx Hx Neurological and Psychiatric Disorders: No - Cancer History Hx Cancer: No - Congenital Disorder History Hx Congenital Disorders: No - GI History Hx Gastrointestinal Disorders: No - Other Health History Other Health History: denies - Chronic Pain History Chronic Pain: No - Surgical History Prior Surgeries: pacemaker; cardiac stent; hernia repair; T&A; teeth extraction ANE Review of Systems Review of Systems: - Exercise capacity METS (RN): 3 METS - Pacemaker Date Pacemaker Last Checked: 01/14/17 ANE Patient History - Allergies Allergies/Adverse Reactions: No Known Allergies Allergy (Unverified 08/14/16 06:34) - Home Medications Home Medications: Apixaban [Eliquis] 5 mg PO BID 08/14/16 [Last Taken 07/13/17] Lisinopril [Zestril 5 mg (*)] 5 mg PO HS 08/14/16 [Last Taken 07/14/17] Omeprazole [Prilosec 20 mg] 20 mg PO HS 08/14/16 [Last Taken 07/14/17] Atorvastatin Calcium [Lipitor 40 mg (*)] 80 mg PO HS 01/14/17 [Last Taken ] Aspirin EC [Aspirin EC 81 mg (*)] 81 mg PO HS 02/18/17 [Last Taken 07/14/17] - NPO status NPO Status: no food or drink >8 hours - Anes Hx Anes Hx: no prior problems - Smoking Hx Smoking Status: Former smoker - Alcohol Use Alcohol Use: Rarely - Family Anes Hx Family Anes Hx: none Family Hx Anesthesia Complications: denies ANE Labs/Vital Signs - Labs Result Diagrams: 07/15/17 07:30 07/15/17 07:30 - Vital Signs Blood Pressure: 128/80 Heart Rate: 60 Respiratory Rate: 20 O2 Sat (%): 92 Height: 182.88 cm Weight: 95.254 kg ANE Physical Exam - Airway Mallampati Score: Class 2 Mouth exam: normal dental/mouth exam - Pulmonary Pulmonary: no respiratory distress - Cardiovascular Cardiovascular: regular rate and rhythym - ASA Status ASA Status: III ANE Anesthesia Plan Anesthesia Plan: GA w LMA
[2017-07-15] MEDS ORDERED: PROPOFOL 200 MG/20 ML VIAL ONE (12:11)
[2017-07-15] MEDS ORDERED: PROTAMINE SULFATE 50 MG/5 ML VIAL IVP ONE (12:43)
[2017-07-15] MEDS ORDERED: BUPIVACAINE 0.5% 30 ML SDV ONE (12:44)
--- NOTE | 2017-07-15 13:02 | POSTOPPROG ---
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
--- NOTE | 2017-07-15 13:24 | PDRADPN ---
Radiology Procedure Note Date of Procedure: 07/15/17 Radiologist: Argenis Bonner Anesthesiologist: DR. JN WALKER Anesthesia: GET(General Endotracheal) Pre-op Diagnosis: AAA Post-op Diagnosis: SAME Indication: ENLARGING AAA Procedure: STENTGRAFT REPAIR. CUT DOWN OF LT GROIN Finding(s): SEALED ANEURYSM. RT GROIN CLOSED PERCUATNEOUSLY. LT GROIN CLOSED BY CUT DOWN AND SUTURING. Inf/Abcess present in the surg proc area at time of surgery?: No EBL: 50-100 Complications: NONE IMMEDIATELY.
[2017-07-15] MEDS ORDERED: NS 1,000 ML IV SCH (13:30)
[2017-07-15] MEDS ORDERED: PROMETHAZINE HCL 25 MG/ML INJ IVP PRN (13:35)
[2017-07-15] MEDS ORDERED: fentaNYL 100 MCG/2 ML INJ IVP PRN (13:35)
[2017-07-15] MEDS ORDERED: MEPERIDINE 25 MG/0.5 ML AMP IVP PRN (13:35)
[2017-07-15] MEDS ORDERED: DEXAMETHASONE 4 MG/ML VIAL IVP PRN (13:35)
[2017-07-15] MEDS ORDERED: oxyCODONE IR 5 MG TAB PO PRN ×2 (13:35→18:23)
[2017-07-15] MEDS ORDERED: ONDANSETRON 4 MG/2 ML VIAL IVP PRN (13:35)
[2017-07-15] MEDS ORDERED: HYDROCODONE/APAP 5/325 TAB PO PRN (13:35)
[2017-07-15] MEDS ORDERED: PHENYLEPHRINE HCL 100 MCG/ML SYR IVP PRN (13:35)
[2017-07-15] MEDS ORDERED: ALBUTEROL 3 ML DEYVIAL IH PRN (13:35)
[2017-07-15] MEDS ORDERED: LABETALOL HCL 5 MG/ML 20 ML MDV IVP PRN (13:35)
[2017-07-15] MEDS ORDERED: METOCLOPRAMIDE 10 MG/2 ML VIAL IVP PRN (13:35)
[2017-07-15] MEDS ORDERED: ACETAMINOPHEN 500 MG TAB PO PRN (13:35)
[2017-07-15] MEDS ORDERED: LR 500 ML IV PRN (13:35)
--- NOTE | 2017-07-15 15:42 | PDMN ---
Medical Necessity Medical necessity: MCG : S 131 AAA, endovascular repair 1 day
--- NOTE | 2017-07-15 15:50 | GCON ---
[f rep st] CONSULTATION INTERMODAL CUSTOMER SERVICE CONSULTATION REASON FOR ADMISSION: Status post abdominal aortic aneurysm repair. HISTORY: The patient is a very pleasant 77-year-old white male with a past medical history of atrial fibrillation, coronary artery disease, peripheral vascular disease, hypertension, hypercholesteremia . And mild aortic stenosis. Again, he is examined postoperatively after receiving abdominal aortic a neurysm repair per Interventional Radiology. This was complicated by some bleeding at the puncture s ite in the groin requiring surgical evaluation. In discussion with the patient he states that overal l he feels quite well. He denies any cough or productive sputum. There is no chest pain, pleuritic- type chest pain or angina equivalent. There is no fever or night sweats. His pain is fairly well co ntrolled, and he is currently resting comfortably. PAST MEDICAL HISTORY: Significant for mild aortic stenosis, hypercholesterolemia, hypertension, dianna pheral vascular disease, abdominal aortic aneurysm, atrial fibrillation, and coronary artery disease. ALLERGIES: No known allergies to medications. SOCIAL HISTORY: Previous smoker; none for 20 years. He admits to infrequent alcohol use. 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 He is with children. He has lived in [facility] for many years. He is originally from [place]. FAMILY HISTORY: Noncontributory. PHYSICAL EXAM: VITAL SIGNS: Blood pressure is 125/66, pulse 60, respirations are 11, temperature 36 .7, oxygen saturation 97% on 3 L. GENERAL: A well-developed, well-nourished, 77-year-old white male who is resting comfortably in no acute distress. HEENT: Eyes are PERRL, EOMI. Throat shows no dagoberto thema or tonsillar hypertrophy. NECK: Supple. No cervical adenopathy. HEART: Irregularly irregul ar with a 2/6 systolic murmur at left sternal border without radiation. LUNGS: Diminished breath so unds but no wheeze. ABDOMEN: Soft, nontender. Bowel sounds are present in all 4 quadrants. EXTREM ITIES: No clubbing, cyanosis, or edema. LABORATORIES: White count 4.6, hemoglobin 14, hematocrit 42, platelet count 129. INR is 1.02. [place] um 143, potassium 4.1, chloride 108, CO2 24, BUN 20, creatinine 1.1, glucose is 90. IMPRESSION: 1. Abdominal aortic aneurysm. 2. Percutaneous stenting, abdominal aortic aneurysm. 3. History of hypertension. 4. Hypercholesterolemia. 5. Coronary artery disease. 6. Atrial fibrillation. RECOMMENDATIONS: 1. Adequate pain control. 2. DVT and PE prophylaxis. 3. Stress ulcer prophylaxis. 4. Close cardiovascular monitoring. 5. Early ambulation. 6. PT and OT. /[id number]/MODL
--- NOTE | 2017-07-15 16:06 | ASMTCMCOM ---
CM Note CM Note Notes: 77yr olf male admitted for AAA R. He has a Hx of Afib, Pacer, PVD. Lives with his . May not have discharge needs. Date Signed: 07/15/2017 04:05 PM Electronically Signed By:Ирина Goodman LCSW
[2017-07-15] MEDS ORDERED: ZOLPIDEM TARTRATE 5 MG TAB PO PRN (18:23)
--- NOTE | 2017-07-15 18:25 | SOAPPROG ---
SOAP Progress Note Assessment/Plan: Assessment: Doing well post AAA endograft and LT cut down/arterial suture for hemostasis. Big thanks to Dr. Melendez for his help. Plan: Continue bed rest for tonight. Ambulate tomorrow. Anticipate D/C tomorrow if no issues with ambulation. 07/15/17 18:24 Subjective: Slight LT groin discomfort. Rt groin with minimal tinge Objective: Vital Signs Temp Pulse Resp BP Pulse Ox 36.7 C 60 12 139/88 H 96 07/15/17 15:00 07/15/17 16:30 07/15/17 16:30 07/15/17 16:30 07/15/17 16:30 Laboratory Results 07/15/17 07:30 07/15/17 07:30 07/14/17 07/15/17 07/16/17 05:59 05:59 05:59 Intake Total 2135 Output Total 2075 Balance 60 PT 13.6 SEC (12.0-15.0) 07/15/17 07:30 INR 1.02 (0.83-1.16) 07/15/17 07:30 No change in pedal pulses. ICD10 Worksheet Patient Problems: Problems Problem Status Onset Sick sinus syndrome Acute
[2017-07-15] MEDS ORDERED: METOPROLOL TARTRATE 5 MG/5 ML INJ IVP ONE (20:15)
[2017-07-15] MEDS ORDERED: DILTIAZEM 25 MG/5 ML VIAL IVP ONE (20:15)
[2017-07-15] MEDS ORDERED: DILTIAZEM 125 MG in D5W 125 ML IV SCH (20:30)
[2017-07-15] MEDS: SOTALOL HCL 80 MG TAB PO SCH (22:44)
[2017-07-16 06:26] LABS: PLATELET COUNT 109 10^3/uL (150-400)
[2017-07-16] MEDS: SOTALOL HCL 80 MG TAB PO SCH (08:17)
--- NOTE | 2017-07-16 09:26 | SOAPPROG ---
SOAP Progress Note Assessment/Plan: Assessment: Doing well post AAA endograft and LT cut down/arterial suture for hemostasis. Big thanks to Dr. Melendez for his help. Plan: Continue bed rest for tonight. Ambulate tomorrow. Anticipate D/C tomorrow if no issues with ambulation. 07/15/17 18:24 07/16/17 09:25 D/C SNYDER AMBULATE TOLERATED OOB TO CHAIR AT < 90 DEGREES. Subjective: NO COMPLAINTS. Objective: Vital Signs Temp Pulse Resp BP Pulse Ox 37 C 64 18 115/63 96 07/16/17 08:00 07/16/17 08:00 07/16/17 08:00 07/16/17 08:00 07/16/17 08:00 Laboratory Results 07/16/17 06:05 07/15/17 07:30 07/15/17 07/16/17 07/17/17 05:59 05:59 05:59 Intake Total 3035 Output Total 3475 Balance -440 PT 13.6 SEC (12.0-15.0) 07/15/17 07:30 INR 1.02 (0.83-1.16) 07/15/17 07:30 SMALL HEMATOMA ON LT. DRESSINGS CHANGED. RT GROIN C/D/I. PULSES UNCHANGED. ICD10 Worksheet Patient Problems: Problems Problem Status Onset Sick sinus syndrome Acute
--- NOTE | 2017-07-16 09:45 | PDINTPN ---
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 Pain is well controlled. Denies any shortness of breath or abdominal pain. Objective: Vital Signs Temp Pulse Resp BP Pulse Ox 37 C 64 18 115/63 96 07/16/17 08:00 07/16/17 08:00 07/16/17 08:00 07/16/17 08:00 07/16/17 08:00 Laboratory Results 07/16/17 06:05 07/15/17 07:30 07/15/17 07/16/17 07/17/17 05:59 05:59 05:59 Intake Total 3035 Output Total 3475 Balance -440 PT 13.6 SEC (12.0-15.0) 07/15/17 07:30 INR 1.02 (0.83-1.16) 07/15/17 07:30 - Time Spent With Patient Time Spent With Patient: 35 min of time spent with patient, over 1/2 involved with coordination of care or counseling Physical Exam - Physical Exam General Appearance: WD/WN, alert, no apparent distress EENT: PERRL/EOMI, normal ENT inspection, pharynx normal, TMs normal Neck: non-tender, full range of motion, supple, normal inspection Respiratory: chest non-tender, lungs clear, normal breath sounds Cardiac/Chest: normal peripheral pulses, regular rate, rhythm, systolic murmur Abdomen: normal bowel sounds, non-tender, soft Male Genitalia: deferred Rectal: deferred Skin: normal color, warm/dry Extremities: normal range of motion, non-tender, normal inspection, normal capillary refill Neuro/Psych: alert ICD10 Worksheet Patient Problems: Problems Problem Status Onset Sick sinus syndrome Acute
[2017-07-16 12:47] VITALS: BP 130/58
--- NOTE | 2017-07-18 15:09 | POSTANESTH ---
Post Anesthetic Evaluation Cardiovascular Status: Normal, Stable Respiratory Status: Normal, Stable Level of Consciousness/Mental Status: Can Participate in Eval Pain Control: Adequate, Prn Tx Ordered Nausea/Vomiting Control: Adequate, Prn Tx Ordered Complications Possibly Related to Anesthesia: None Noted (seen on 07/16/17 at 0800 )
== END 2017-07-16 14:15 | disposition home or self-care (01) | DRG 269 ==
LOC: FIMAGING 06:16 → F2N 13:19
PROVIDERS: ADMIT Radiology Diagnostic Radiology; ATTEND Radiology Diagnostic Radiology
PROC: B4101ZZ Fluoroscopy of Abdominal Aorta using Low Osmolar Contrast (ICD-10-PCS; principal; 2017-07-15 08:00)
PROC: 04QL0ZZ Repair Left Femoral Artery, Open Approach (ICD-10-PCS; principal; 2017-07-15 08:00)
PROC: 04V03DZ Restriction of Abdominal Aorta with Intraluminal Device, Percutaneous Approach (ICD-10-PCS; principal; 2017-07-15 08:00)
DX: I71.4 Abdominal aortic aneurysm, without rupture (principal); I10 Essential (primary) hypertension; E78.00 Pure hypercholesterolemia, unspecified; I25.10 Atherosclerotic heart disease of native coronary artery without angina pectoris; Z95.5 Presence of coronary angioplasty implant and graft; I48.91 Unspecified atrial fibrillation; Z79.82 Long term (current) use of aspirin; Z95.0 Presence of cardiac pacemaker; Z87.891 Personal history of nicotine dependence
CPT/HCPCS: C1725; C1758; C1760; C1769; C1894; J0690; J1100; J1644; J2001; J2370; J2704; J2720; J3010; Q9967

== ENCOUNTER → 2017-07-26 | Outpatient (CLI) | payer OTHER | LOC: FIMAGING 13:08 | PROVIDERS: ATTEND Radiology Diagnostic Radiology | DX: I97.638 Postprocedural hematoma of a circulatory system organ or structure following other circulatory system procedure (principal) ==

== ENCOUNTER → 2017-12-26 | Outpatient (CLI) | payer OTHER | LOC: FIMAGING 10:50 | PROVIDERS: ATTEND Radiology Diagnostic Radiology | DX: Z09 Encounter for follow-up examination after completed treatment for conditions other than malignant neoplasm (principal); Z98.890 Other specified postprocedural states; I71.4 Abdominal aortic aneurysm, without rupture; I70.0 Atherosclerosis of aorta | CPT/HCPCS: 74174; Q9967; 82565-PO ==

== ENCOUNTER → 2018-02-11 | Outpatient (CLI) | payer OTHER | LOC: FIMAGING 12:13 | PROVIDERS: ATTEND Internal Medicine Cardiovascular Disease | DX: I71.4 Abdominal aortic aneurysm, without rupture (principal); I74.3 Embolism and thrombosis of arteries of the lower extremities; I72.4 Aneurysm of artery of lower extremity | CPT/HCPCS: 75635; Q9967 ==

== ENCOUNTER → 2018-04-09 | Day surgery (SDC) | payer OTHER ==
[~2018-04-09] MED LIST changes: +ATROPINE SULFATE 1 MG/10 ML SYR IVP ONE; +BENZOCAINE UNIT DOSE SPRAY HURRICAINE MM ONE; -IOPAMIDOL (ISOVUE 370) 100 ML BTL IV ONE; +MIDAZOLAM 2 MG/2 ML VIAL IVP ONE; +NS 500 ML IV ONE; +fentaNYL 100 MCG/2 ML INJ IVP ONE
--- NOTE | 2018-04-10 09:17 | CPEKG ---
Test Reason : OPEN Blood Pressure : / mmHG Vent. Rate : 070 BPM Atrial Rate : 070 BPM P-R Int : 212 ms QRS Dur : 093 ms QT Int : 419 ms P-R-T Axes : 038 016 034 degrees QTc Int : 453 ms Atrial-paced rhythm Confirmed by Bimal Soni ([id number]) on 04/10/2018 9:16:30 AM Referred By: Fortino Artis Confirmed By:Bimal Soni
== END | disposition home or self-care (01) ==
LOC: FCATH 09:28
PROVIDERS: ATTEND Internal Medicine Cardiovascular Disease
DX: I48.0 Paroxysmal atrial fibrillation (principal); Z53.09 Procedure and treatment not carried out because of other contraindication; I25.10 Atherosclerotic heart disease of native coronary artery without angina pectoris; Z95.5 Presence of coronary angioplasty implant and graft; I73.9 Peripheral vascular disease, unspecified; Z95.0 Presence of cardiac pacemaker

== ENCOUNTER → 2018-07-29 | Outpatient (CLI) | payer OTHER | LOC: FIMAGING 15:13 | PROVIDERS: ATTEND Internal Medicine Cardiovascular Disease | DX: I48.91 Unspecified atrial fibrillation (principal); Z79.899 Other long term (current) drug therapy ==